=== PATIENT | female | born 1980 | race African-American/Black ===

== ENCOUNTER 2017-05-18 01:38 | Observation (INO) | payer MEDICAID ==
[~2017-05-18] VITALS: Ht 157.5 cm; Wt 78.0 kg
[2017-05-18 01:40] VITALS: BP 195/93; PULSE 77; RESP 18; TEMP 98.8; O2SAT 97
[2017-05-18 02:44] LABS: AUTOMATED NEUTROPHIL # 9.1 TH/MM3 (1.8-7.7); BASOPHIL # 0.1 TH/MM3 (0-0.2); BASOPHIL % 0.6 % (0.0-2.0); EOSINOPHIL # 0.1 TH/MM3 (0-0.4); EOSINOPHIL % 0.4 % (0.0-4.0); HEMO FLAGS DIFF FINAL; LYMPH % 20.6 % (9.0-44.0); LYMPHOCYTE # 2.7 TH/MM3 (1.0-4.8); MEAN CELL VOLUME 80.1 FL (80.0-100.0); MEAN CORPUSCULAR HEMOGLOBIN 25.6 PG (27.0-34.0); MEAN CORPUSCULAR HGB CONC 31.9 % (32.0-36.0); MONO % 8.3 % (0.0-8.0); NEUT % 70.1 % (16.0-70.0); PLATELET COUNT 345 TH/MM3 (150-450); RED BLOOD COUNT 3.99 MIL/MM3 (4.00-5.30); RED CELL DISTRIBUTION WIDTH 16.3 % (11.6-17.2)
[2017-05-18] MEDS ORDERED: KETOROLAC TROMETHAMINE 30 MG/ML (IVP) VIAL IV PUSH ONE (02:45)
[2017-05-18] MEDS ORDERED: DIAZEPAM 5 MG TAB PO ONE (02:45)
[2017-05-18 03:01] LABS: ALT (GPT) 18 U/L (10-53); ANION GAP 5 MEQ/L (5-15); AST (GOT) 13 U/L (15-37); BICARBONATE 27.7 MEQ/L (21.0-32.0); BLOOD UREA NITROGEN 4 MG/DL (7-18); CHLORIDE 107 MEQ/L (98-107); GLOMERULAR FILTRATION RATE 223 ML/MIN (>89); POTASSIUM 3.7 MEQ/L (3.5-5.1); SODIUM (NA) 140 MEQ/L (136-145)
[2017-05-18 03:03] LABS: ALKALINE PHOSPHATASE 78 U/L (45-117); TOTAL BILIRUBIN ADULT 0.1 MG/DL (0.2-1.0)
[2017-05-18 06:34] VITALS: PULSE 86; RESP 16; O2SAT 98
[2017-05-18 07:05] VITALS: TEMP 98.9
[2017-05-18] MEDS ORDERED: cefTRIAXone INJ 2,000 MG in SODIUM CHLORIDE 0.9% INJ 100 ML IV ONE (07:15)
[2017-05-18] MEDS ORDERED: VANCOMYCIN INJ 1,000 MG in SODIUM CHLOR 0.9% 250 ML INJ 250 ML IV ONE (07:15)
[2017-05-18] MEDS ORDERED: MORPHINE SULFATE 4 MG/ML INJ IV PUSH ONE (07:15)
--- NOTE | 2017-05-18 07:23 | PD ---
HPI Chief Complaint: Back/ Neck Pain or Injury Time Seen by Provider: 01:51 Travel History International Travel<30 days: No Contact w/Intl Traveler<30days: No Traveled to known affect area: No History of Present Illness HPI Patient is a 36-year-old female with a headache and a neck ache and a fever at home. For the last 2 days. She took Tylenol did not alleviate her symptoms the pain is localized to her neck and paraspinal muscles she has not been able to sleep and she reports having a fever. She denies having a cough or sore throat. No diarrhea or other source for the possible infection and neck pain. PFSH Past Medical History Anemia: Yes Autoimmune Disease: No Diminished Hearing: No Headaches: Yes ?: Unknown LMP: 04/18/17 Menopausal: Yes : 1 Para: 1 Past Surgical History Other Surgery: Yes (BILAT LYMPHECTOMY) Social History Alcohol Use: Yes (2-3 BEERS DAILY) Tobacco Use: Yes (1 PK PER DAY) Substance Use: No Allergies-Medications (Allergen,Severity, Reaction): Coded Allergies: diphenhydramine (Unverified Allergy, Intermediate, HIVES, 05/18/17) Reported Meds & Prescriptions Reported Meds & Active Scripts Active No Active Prescriptions or Reported Medications Review of Systems General / Constitutional: Positive: Fever (subjective she did not measure her temperature), Chills Musculoskeletal: Positive: Myalgias (neck ache) Physical Exam Narrative GENERAL: Patient is awake alert does not appear to be toxic SKIN: Warm and dry. HEAD: Atraumatic. Normocephalic. EYES: Pupils equal and round. No scleral icterus. No injection or drainage. ENT: No nasal bleeding or discharge. Mucous membranes pink and moist. NECK: Trachea midline. No JVD. Percussion of her spinous processes in her lumbar and thoracic spine did not elicit any pain in her neck and her pain seems to be paraspinal in the muscles of the neck CARDIOVASCULAR: Regular rate and rhythm. RESPIRATORY: No accessory muscle use. Clear to auscultation. Breath sounds equal bilaterally. GASTROINTESTINAL: Abdomen soft, non-tender, nondistended. Hepatic and splenic margins not palpable. MUSCULOSKELETAL: Extremities without clubbing, cyanosis, or edema. No obvious deformities. NEUROLOGICAL: Awake and alert. No obvious cranial nerve deficits. Motor grossly within normal limits. Five out of 5 muscle strength in the arms and legs. Normal speech. PSYCHIATRIC: Appropriate mood and affect; insight and judgment normal. Data Data Last Documented VS Vital Signs Date Time Temp Pulse Resp B/P (MAP) Pulse Ox O2 Delivery O2 Flow Rate FiO2 05/18/17 07:31 76 18 188/91 (123) 96 Room Air 05/18/17 07:05 98.9 Orders Orders Complete Blood Count With Diff (05/18/17 02:07) Comprehensive Metabolic Panel (05/18/17 02:07) Ketorolac Inj (Toradol Inj) (05/18/17 02:45) Diazepam (Valium) (05/18/17 02:45) Morphine Inj (Morphine Inj) (05/18/17 07:15) Ceftriaxone Inj (Rocephin Inj) (05/18/17 07:15) Vancomycin Inj (Vancomycin Inj) (05/18/17 07:15) Csf Cell Count + Differential (05/18/17 07:29) Glucose, Csf (05/18/17 07:29) Total Protein, Csf (05/18/17 07:29) Csf Culture And Gram Stain (05/18/17 07:29) Sodium Chlor 0.9% 1000 Ml Inj (Ns 1000 M (05/18/17 07:45) Admit Order (Ed Use Only) (05/18/17 08:00) Labs Laboratory Tests Test 05/18/17 02:30 05/18/17 07:35 White Blood Count 13.0 TH/MM3 Red Blood Count 3.99 MIL/MM3 Hemoglobin 10.2 GM/DL Hematocrit 32.0 % Mean Corpuscular Volume 80.1 FL Mean Corpuscular Hemoglobin 25.6 PG Mean Corpuscular Hemoglobin Concent 31.9 % Red Cell Distribution Width 16.3 % Platelet Count 345 TH/MM3 Mean Platelet Volume 8.6 FL Neutrophils (%) (Auto) 70.1 % Lymphocytes (%) (Auto) 20.6 % Monocytes (%) (Auto) 8.3 % Eosinophils (%) (Auto) 0.4 % Basophils (%) (Auto) 0.6 % Neutrophils # (Auto) 9.1 TH/MM3 Lymphocytes # (Auto) 2.7 TH/MM3 Monocytes # (Auto) 1.1 TH/MM3 Eosinophils # (Auto) 0.1 TH/MM3 Basophils # (Auto) 0.1 TH/MM3 CBC Comment DIFF FINAL Differential Comment Blood Urea Nitrogen 4 MG/DL Creatinine 0.39 MG/DL Random Glucose 97 MG/DL Total Protein 7.8 GM/DL Albumin 3.1 GM/DL Calcium Level 8.3 MG/DL Alkaline Phosphatase 78 U/L Aspartate Amino Transf (AST/SGOT) 13 U/L Alanine Aminotransferase (ALT/SGPT) 18 U/L Total Bilirubin 0.1 MG/DL Sodium Level 140 MEQ/L Potassium Level 3.7 MEQ/L Chloride Level 107 MEQ/L Carbon Dioxide Level 27.7 MEQ/L Anion Gap 5 MEQ/L Estimat Glomerular Filtration Rate 223 ML/MIN CSF Volume (Tube 1) 1.1 ML CSF Supernatant Color (tube 1) CLEAR CSF Gross Blood (Tube 1) TRACE CSF Volume (Tube 2) 1.2 ML CSF Supernatant Color (tube 2) CLEAR CSF Gross Blood (Tube 2) 0 CSF Volume (Tube 3) 1.2 ML CSF Supernatant Color (tube 3) CLEAR CSF Gross Blood (Tube 3) 0 CSF Volume (Tube 4) 1.0 ML CSF Supernatant Color (tube 4) CLEAR CSF Gross Blood (Tube 4) 0 CSF WBC (Tube 4) 0 /MM3 CSF RBC (Tube 4) 2 /MM3 CSF Neutrophils 0 % CSF Lymphocytes 0 % CSF Glucose 57 MG/DL CSF Total Protein 26.0 MG/DL MDM Medical Decision Making Medical Screen Exam Complete: Yes Emergency Medical Condition: Yes Differential Diagnosis meningitis vs torticollis vs muscle spasm vs viral illness vs headache NOS , other Narrative Course I order CBC and gave toradol and valium. pt slept but on awakening reported continued neck pain that was now worse and she was diaphoretic and her WBC came back at 13. I felt it was at this time indicated to rule out spinal meningitis. LP attempted by this MD but after 2 sticks I was unable to obtain spinal CSF,,on change of shift I asked Dr Manjarrez if she would attempt the LP she kindly offered to help and was able to obtain spinal fluid which was sent , I admitted and gave VAnco Ceftriaxone until CSF could be analyzed. I admitted to Dr Rome Scripts No Active Prescriptions or Reported Meds Romie Ignacio MD May 18, 2017 07:23
[2017-05-18 07:31] VITALS: BP 188/91; PULSE 76; RESP 18; O2SAT 96
--- NOTE | 2017-05-18 07:31 | PD ---
Physical Exam Narrative This patient with fever and neck pain was seen by previous provider. I was asked to attempt lumbar puncture and was successful in obtaining spinal fluid. Pt instructed to lie flat after the lumbar puncture. No complications. Data Data Last Documented VS Vital Signs Date Time Temp Pulse Resp B/P (MAP) Pulse Ox O2 Delivery O2 Flow Rate FiO2 05/18/17 07:31 76 18 188/91 (123) 96 Room Air 05/18/17 07:05 98.9 Orders Orders Complete Blood Count With Diff (05/18/17 02:07) Comprehensive Metabolic Panel (05/18/17 02:07) Ketorolac Inj (Toradol Inj) (05/18/17 02:45) Diazepam (Valium) (05/18/17 02:45) Morphine Inj (Morphine Inj) (05/18/17 07:15) Ceftriaxone Inj (Rocephin Inj) (05/18/17 07:15) Vancomycin Inj (Vancomycin Inj) (05/18/17 07:15) Csf Cell Count + Differential (05/18/17 07:29) Glucose, Csf (05/18/17 07:29) Total Protein, Csf (05/18/17 07:29) Csf Culture And Gram Stain (05/18/17 07:29) Sodium Chlor 0.9% 1000 Ml Inj (Ns 1000 M (05/18/17 07:45) Admit Order (Ed Use Only) (05/18/17 08:00) Labs Laboratory Tests Test 05/18/17 02:30 05/18/17 07:35 White Blood Count 13.0 TH/MM3 Red Blood Count 3.99 MIL/MM3 Hemoglobin 10.2 GM/DL Hematocrit 32.0 % Mean Corpuscular Volume 80.1 FL Mean Corpuscular Hemoglobin 25.6 PG Mean Corpuscular Hemoglobin Concent 31.9 % Red Cell Distribution Width 16.3 % Platelet Count 345 TH/MM3 Mean Platelet Volume 8.6 FL Neutrophils (%) (Auto) 70.1 % Lymphocytes (%) (Auto) 20.6 % Monocytes (%) (Auto) 8.3 % Eosinophils (%) (Auto) 0.4 % Basophils (%) (Auto) 0.6 % Neutrophils # (Auto) 9.1 TH/MM3 Lymphocytes # (Auto) 2.7 TH/MM3 Monocytes # (Auto) 1.1 TH/MM3 Eosinophils # (Auto) 0.1 TH/MM3 Basophils # (Auto) 0.1 TH/MM3 CBC Comment DIFF FINAL Differential Comment Blood Urea Nitrogen 4 MG/DL Creatinine 0.39 MG/DL Random Glucose 97 MG/DL Total Protein 7.8 GM/DL Albumin 3.1 GM/DL Calcium Level 8.3 MG/DL Alkaline Phosphatase 78 U/L Aspartate Amino Transf (AST/SGOT) 13 U/L Alanine Aminotransferase (ALT/SGPT) 18 U/L Total Bilirubin 0.1 MG/DL Sodium Level 140 MEQ/L Potassium Level 3.7 MEQ/L Chloride Level 107 MEQ/L Carbon Dioxide Level 27.7 MEQ/L Anion Gap 5 MEQ/L Estimat Glomerular Filtration Rate 223 ML/MIN CSF Volume (Tube 1) 1.1 ML CSF Supernatant Color (tube 1) CLEAR CSF Gross Blood (Tube 1) TRACE CSF Volume (Tube 2) 1.2 ML CSF Supernatant Color (tube 2) CLEAR CSF Gross Blood (Tube 2) 0 CSF Volume (Tube 3) 1.2 ML CSF Supernatant Color (tube 3) CLEAR CSF Gross Blood (Tube 3) 0 CSF Volume (Tube 4) 1.0 ML CSF Supernatant Color (tube 4) CLEAR CSF Gross Blood (Tube 4) 0 CSF WBC (Tube 4) 0 /MM3 CSF RBC (Tube 4) 2 /MM3 CSF Neutrophils 0 % CSF Lymphocytes 0 % CSF Glucose 57 MG/DL CSF Total Protein 26.0 MG/DL MDM Supervised Visit with LATA: No Procedures Procedure Narrative LUMBAR PUNCTURE: The patient was placed in the sitting position. The lumbar area of the back was prepped with Betadine and sterilely draped. The L3 -- L4 interspace was infiltrated with 1% lidocaine plain. Number 20 gauge LP needle was placed in the interspace. Opening pressure deferred. Number 4 milliliters of clear CSF were obtained. Patient tolerated procedure well. Diagnosis Primary Impression: Neck pain Scripts No Active Prescriptions or Reported Meds Terese Manjarrez DO May 18, 2017 07:31
[2017-05-18] MEDS ORDERED: SODIUM CHLOR 0.9% 1000 ML INJ 1,000 ML IV ONE (07:45)
[2017-05-18 08:49] LABS: GROSS BLOOD TUBE #2 0 (0); GROSS BLOOD TUBE #3 0 (0); SUPERNATE COLOR TUBE #1 CLEAR (CLEAR); SUPERNATE COLOR TUBE #2 CLEAR (CLEAR); SUPERNATE COLOR TUBE #3 CLEAR (CLEAR); VOLUME TUBE # 1 1.1 ML; VOLUME TUBE # 2 1.2 ML; VOLUME TUBE # 3 1.2 ML
[2017-05-18 08:50] LABS: CSF LYMPHOCYTES 0 %; CSF NEUTROPHILS 0 %; GROSS BLOOD TUBE #4 0 (0); SUPERNATE COLOR TUBE #4 CLEAR (CLEAR); WBC TUBE #4 0 /MM3 (0-10)
[2017-05-18 08:54] LABS: GROSS BLOOD TUBE #1 TRACE (0)
[2017-05-18 09:05] VITALS: BP 108/72; PULSE 85; RESP 16; O2SAT 97
[2017-05-18 09:40] VITALS: O2SAT 98
--- NOTE | 2017-05-18 10:44 | HHI.PR ---
Addendum to Inpatient Note Additional Information Went to see the patient and admit her however she told me up front she is leaving anyway and she doesn't want to stay and she doesn't want to have any workup or further medication She is fully awake alert oriented and competent she said she had a daughter she wants to go and take care of her, explained to her that neck pain and fever might be symptoms of possible severe in the edition such as meningitis however she stated she doesn't think so, and she was adamant to leave AMA Discharge patient to: Patient left AMA Condition on discharge: Guarded Regular Diet as tolerated Ad Rebeca activity Rx written: N/a Lupillo Grady MD May 18, 2017 10:44
--- NOTE | 2017-05-18 10:44 | PD.AMA ---
Against Medical Advice Note Pt Condition on Discharge: Guarded Recommended Treatment Course Went to see the patient and admit her however she told me up front she is leaving anyway and she doesn't want to stay and she doesn't want to have any workup or further medication She is fully awake alert oriented and competent she said she had a daughter she wants to go and take care of her, explained to her that neck pain and fever might be symptoms of possible severe in the edition such as meningitis however she stated she doesn't think so, and she was adamant to leave AMA AMA Statement Patient Jax Patrick has decided to leave the hospital against medical advice. This patient has the capacity to refuse care and understands the risks of leaving, including permanent disability and/or , and has had an opportunity to ask questions about her condition. The patient has been informed that she may return for care at any time, and follow up has been arranged/ advised. Lupillo Grady MD May 18, 2017 10:44
[2017-05-18] MEDS ORDERED: ACYCLOVIR IV ONE (11:00)
[2017-05-18] MEDS ORDERED: SODIUM CHLORIDE 0.9% IV ONE (11:00)
== END 2017-05-18 10:54 | disposition left against medical advice (07) ==
LOC: NEPE 01:38 → NEDA 08:02
PROVIDERS: ADMIT Hospitalist; ATTEND Hospitalist
DX: M54.2 Cervicalgia (principal); R51 Headache; R50.9 Fever, unspecified; R61 Generalized hyperhidrosis; F17.200 Nicotine dependence, unspecified, uncomplicated
CPT/HCPCS: 62270; 80053; 82945; 84157; 85025; 87070; 87205; 89051; 96365; 96375; 96376; 99285; G0378; J0696; J1885; J3370; J7030; J7050